=== PATIENT | female | born 1940 | race African-American/Black ===

== ENCOUNTER → 2017-01-15 | Outpatient (CLI) | payer MEDICARE, OTHER ==
[~2017-01-15] MED LIST: ACYCLOVIR PO; ANTIVERT PO; ASPIRIN81 MG PO; BACTRIM 400-801 TA1 PO; BACTRIM DS TABL1 TA2 PO; BENTYL20 MG PO; CARAFATE1 G PO; CLOPIDOGREL75 MG PO; DICLOFENAC SOD100 GM EXT; DULOXETINE HCL30 MG PO; FERRO-TIME325 MG PO; GLIPIZIDE10 MG/BOTT PO; HYDROCHLOROTH12.5 M1 PO; INVANZ1 G/VIA1 IV; ISOSORBIDE MONO30 M1 PO; LANTUS100 U/ML SUBQ; LEVAQUIN PO; LIPITOR40 MG PO; LISINOPRIL PO; LISINOPRIL10 MG PO; LOPRESSOR PO; METFORMIN PO; METOPROLOL TAR25 MG PO; NIFEREX-150150 MG PO; NITROSTAT0.4 MG; NORVASC10 MG PO; PANTOPRAZOLE SO40 MG PO; PERCOCET5/325 PO; PLAVIX PO; PRINIVIL40 MG PO; PROAIR HFA8.5 GM INH; PYRIDIUM PO; SENNA CONCENTR8.6 MG PO; SENNA S TABLET1 TAB PO; ZOCOR PO
--- NOTE | ~2017-01-15 | BD1 ---
[facility] A Service of [facility] & [facility] RADIOLOGY TEXT RESULTS PATIENT: ZENY OLIVEIRA LOCATION: [facility] : 36 UNIT #: [id number] AGE: [address]: Mirtha Ricks APRN SEX: F ORDER DR: [id number] [facility] [address] [place], [place] [address] [id number] O MR#: [id number] Acc #: [id number] NAME: ZENY OLIVEIRA : 1940 SEX: F STUDY DATE/TIME: 01/15/2017 12:50 UNIT: [facility] ROOM: STUDY DESCRIPTION: BD Dexa Bone Dens 1+ Site Attending Physician: Mirtha Ricks A.P.R.N. Referring Physician: Mirtha Ricks A.P.R.N. Ordering Physician: Mirtha Ricks A.P.R.N. Primary Care Physician: Yuli Da Silva M.D. MEDICAL IMAGING REPORT This report is preliminary unless electronic signature is present EXAM DXA scan, 01/15/2017. HISTORY Status post menopause with no hormone replacement therapy. Osteopenia. Kidney disease and rheumatoid arthritis. Diabetes. Hypertension with blood pressure medication for 10 years. Smoking history for 50 years. FINDINGS Bone mineral density in the lumbar spine from L1 through L4 was 1.206 g/cm2, which is 1.4 standard deviations above the mean when compared to the young adult reference population, which is within the range of normal. This is 3.4 standard deviations above the mean when compared to the age-matched population. Bone mineral density in the left hip was 0.915 g/cm2, which is 0.2 standard deviation below the mean when compared to the young adult reference population, which is within the range of normal. This is 0.7 standard deviation above the mean when compared to the age-matched population. IMPRESSION Bone mineral density in the lumbar spine and left hip within the range of normal. Dictated by... Donnie Bob M.D. THIS IS AN ELECTRONICALLY VERIFIED REPORT Donnie Bob M.D. at 01/17/2017 9:04 AM ZIA/jase [facility]. [facility] A Service of [facility] & [facility] RADIOLOGY TEXT RESULTS PATIENT: ZENY OLIVEIRA [id number] 36 UNIT #: [id number] AGE: [address]: Mirtha Ricks APRN SEX: F ORDER DR: TD: 01/15/2017 17:18 JOB #: [id number] MEDICAL IMAGING REPORT COPY
== END | disposition home or self-care (01) ==
LOC: CWCC 11:47
DX: Z13.820 Encounter for screening for osteoporosis (principal); M19.90 Unspecified osteoarthritis, unspecified site; M54.9 Dorsalgia, unspecified; M50.30 Other cervical disc degeneration, unspecified cervical region
CPT/HCPCS: 77080

== ENCOUNTER → 2017-02-14 | Outpatient (CLI) | payer MEDICARE, OTHER ==
[2017-02-14 12:48] LABS: HEMATOCRIT 25.2 % (35.0-45.0); HEMOGLOBIN 7.5 gm/dL (12.0-16.0); MEAN CELL VOLUME 77.6 FL (83-96); MEAN CORPUSCULAR HEMOGLOBIN 23.2 PG (28-34); MEAN CORPUSCULAR HGB CONC 29.9 g/dL (30-36); MEAN PLATELET VOLUME 7.6 FL (6.5-11.5); RED BLOOD COUNT 3.25 X10e (3.90-5.30); RED CELL DISTRIBUTION WIDTH 16.5 % (11.0-15.5); WHITE BLOOD COUNT 4.5 X10e3 (4.0-10.5)
[2017-02-14 13:22] LABS: CALCIUM SERUM 9.2 mg/dL (8.4-10.2); GLOM FILT RATE Estimated 62.5 mL/min (>60); POTASSIUM 4.7 mmol/L (3.5-5.1)
== END | disposition home or self-care (01) ==
LOC: CLAB 12:10
PROVIDERS: Nurse Practitioner
DX: D64.9 Anemia, unspecified (principal); K25.9 Gastric ulcer, unspecified as acute or chronic, without hemorrhage or perforation; Z79.02 Long term (current) use of antithrombotics/antiplatelets
CPT/HCPCS: 36415; 80048; 82728; 83540; 83550; 85027

== ENCOUNTER → 2017-03-03 | Outpatient (CLI) | payer MEDICARE, OTHER | END | disposition home or self-care (01) | LOC: CSSDAY 08:38 | DX: D50.9 Iron deficiency anemia, unspecified (principal); K90.9 Intestinal malabsorption, unspecified; Z79.899 Other long term (current) drug therapy | CPT/HCPCS: 96374; Q0138 ==

== ENCOUNTER → 2017-03-06 | Outpatient (CLI) | payer MEDICARE, OTHER | END | disposition home or self-care (01) | LOC: CSSDAY 08:45 | DX: D50.9 Iron deficiency anemia, unspecified (principal); Z79.899 Other long term (current) drug therapy | CPT/HCPCS: 96374; Q0138 ==

== ENCOUNTER → 2017-04-09 | Outpatient (CLI) | payer MEDICARE, OTHER | END | disposition home or self-care (01) | LOC: CECH 12:29 | DX: I25.10 Atherosclerotic heart disease of native coronary artery without angina pectoris (principal); I10 Essential (primary) hypertension; I73.9 Peripheral vascular disease, unspecified; I51.7 Cardiomegaly; I08.8 Other rheumatic multiple valve diseases; R60.0 Localized edema | CPT/HCPCS: 93306 ==